=== PATIENT | male | born 1980 | race Caucasian/White ===

== ENCOUNTER 2019-08-09 02:23 | Emergency (ER) | payer SELFPAY ==
[2019-08-09] VITALS (7 sets, daily range): BP systolic 113–123; BP diastolic 69–96; PULSE 68–107; RESP 14–20; TEMP 36.4–36.6; O2SAT 97–99; BMI 19.0
--- NOTE | 2019-08-09 02:25 | ED_ITS ---
Entered by Vandana Romo, acting as scribe for Betzy Villegas MD HPI - Psych General: Chief Complaint: Psychiatric Symptoms Stated Complaint: mhe Time Seen by Provider: 08/09/19 02:29 History of Present Illness: HPI Narrative: 39 yo m came to the er pov for a mental health evaluation. Onset was tonight. Pt states that he has done meth iv, and that he has been up for about 2 weeks and no sleep. Pt states that he is [place]. Patient states that he has been having hallucinations and feels like multiple people are out to get him. He states he is having thoughts of killing these people and is scared that he may harm someone. He does admit to methamphetamine abuse. 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) Duration: constant History of same: Yes Relieving factors: none Exacerbating factors: none Context: recent drug abuse (meth) Associated psychiatric symptoms: homicidal ideation and visual hallucinations Associated symptoms: Reports visual hallucinations and homicidal ideation Details of plan: unknown of plan Review of Systems General: Reports: other (negative unless marked) Const: Denies: fever, chills, body aches or change in appetite Eyes: Denies: blurry vision or eye discomfort ENMT: Denies: throat pain or dental pain Card: Denies: chest pain Resp: Denies: shortness of breath GI: Denies: abdominal pain, nausea, vomiting or diarrhea : Denies: painful urination Musc: Denies: neck pain or back pain Skin/Breast: Denies: rash Neuro: Denies: headache Psych: Reports: visual hallucinations and homicidal ideation [place]/Lymph: Denies: easy bruising All/Imm: Denies: hives PFSH ED PFSH: Social History Smoking and tobacco status: current every day smoker Physical Exam Const: COMMON NORMALS: no apparent distress, oriented x3 and healthy appearing HENMT: COMMON NORMALS: normocephalic and head/scalp atraumatic HEAD & SCALP: normocephalic and atraumatic Eye: COMMON NORMALS: PERRL and EOMs intact bilaterally PUPIL: Yes PERRL Neck/C-Spine: COMMON NORMALS: full ROM and supple Chest: COMMONS NORMALS: inspection of chest normal and palpation of chest normal Resp: COMMON NORMALS: normal respiratory effort, no retractions, no use of accessory muscles and clear to auscultation bilaterally AUSCULTATION: clear to auscultation bilaterally Cardio: COMMON NORMALS: regular rate, regular rhythm and no murmurs RATE: regular rate RHYTHM: regular rhythm GI: COMMON NORMALS: normal to inspection, nondistended, normoactive bowel sounds, soft to palpation, non-tender and no masses PALPATION: Yes soft Extremity: COMMON NORMALS: normal to inspection and full ROM Neuro: COMMON NORMALS: oriented x3, moves all extremities and no focal motor deficits Psych: COMMON NORMALS: mental status grossly normal, thought process normal and cooperative THOUGHT PROCESS: normal thought process Skin: COMMON NORMALS: no rashes or lesions noted and no wounds GENERAL SKIN EXAM: no rashes or lesions noted MDM - Psych MDM Narrative: Medical decision making narrative: Patient presents here with methamphetamine abuse along with homicidal ideations and hallucinations. Patient is voluntarily wanting to go to psychiatric facility. Informed him he is unable to stay here as he has a family member admitted here. We will transfer him to another facility due to having family admitted to our psychiatric unit. Patient is medically cleared. Lab Data: Labs: Lab Results 08/09/19 08/09/19 08/09/19 Range/Units 02:33 02:33 03:15 WBC 9.7 (4.0-10.0) 10^3/ uL RBC 4.74 (4.1-5.3) 10^6/u L Hgb 14.0 (11.7-16.6) g/dL Hct 41.8 L (42.0-52.0) % MCV 88.2 (80-94) fL MCH 29.5 (28.0-34.0) pg MCHC 33.5 (30.0-36.0) g/dL RDW 12.7 (12.1-15.1) % Plt Count 298 (130-400) 10^3/c mm MPV 10.6 H (7.4-10.4) fL Neut % (Auto) 64.6 % Lymph % (Auto) 28.0 % [place] % (Auto) 5.7 % Eos % (Auto) 1.4 % Baso % (Auto) 0.1 % Neut # (Auto) 6.3 (1.8-7.7) 10^3/u L Lymph # (Auto) 2.7 (0.8-4.8) 10^3/u L [place] # (Auto) 0.6 (0.2-0.9) 10^3/u L Eos # (Auto) 0.1 (0.0-0.8) 10^3/u L Baso # (Auto) 0.0 (0.0-0.1) 10^3/u L Nucleated RBC % (a uto) 0 % Nucleated RBCs # 0.0 /100WBC Sodium 142 (136-145) mmol/L Potassium 4.2 (3.5-5.1) mmol/L Chloride 101 (98-107) mmol/L Carbon Dioxide 31 H (22-29) mmol/L Anion Gap 14.2 (5-19) BUN 16 (6-20) mg/dL Creatinine 1.0 (0.7-1.2) mg/dL GFR Calculation 82.3 L (90-130) mL/min Glucose 115 (65-115) mg/dL Calcium 10.1 (8.5-10.5) mg/dL Total Bilirubin 0.2 (0.15-1.2) mg/dL AST 14 (0-40) U/L ALT 10 (0-41) U/L Alkaline Phosphata se 115 (40-130) IU/L Total Protein 7.3 (6.6-8.7) g/dL Albumin 4.0 (3.5-5.2) g/dL Globulin 3.3 (1.3-4.6) g/dL Salicylates < 0.3 L (3-10) mg/dL Urine Opiates Scre en Negative (Negative) ng/mL Acetaminophen < 5.0 L (10-30) ug/mL Ur Barbiturates Sc reen Negative (Negative) ng/mL Ur Phencyclidine S crn Negative (Negative) ng/mL Ur Amphetamines Sc reen Positive H (Negative) ng/mL U Benzodiazepines Scrn Negative (Negative) ng/mL Urine Cocaine Scre en Negative (Negative) ng/mL U Marijuana (THC) Screen Negative (Negative) ng/mL Ethyl Alcohol < 10 (0-10) mg/dL EKG Data^: EKG 1: Attestation: I personally reviewed and interpreted this EKG as follows: EKG interpretation date: 03/06/20 EKG interpretation time: 04:43 Interpretation: Normal sinus rhythm heart rate [address] or T wave abnormalities QRS 109 QTc 447 Discharge Plan Discharge Patient Disposition: Xfer Other Clinical Impression: Drug-induced psychotic disorder, History of homicidal ideation Condition: Stable Coding Level of Care Code ED Headliner Installer for Chg Fwd Exam Comprehensive The documentation recorded by the Demetrius wells Stephanie Lyn, accurately reflects the service I personally performed and the decisions made by me, Betzy Villegas MD Aug 09, 2019 02:23
[2019-08-09 03:04] LABS: Basophils % 0.1 %; Eosinophils # 0.1 10^3/uL (0.0-0.8); Eosinophils % 1.4 %; Hematocrit 41.8 % (42.0-52.0); Lymphocytes # 2.7 10^3/uL (0.8-4.8); Mean Corpuscular HGB Conc 33.5 g/dL (30.0-36.0); Mean Corpuscular Hemoglobin 29.5 pg (28.0-34.0); Mean Corpuscular Volume 88.2 fL (80-94); Mean Platelet Volume 10.6 fL (7.4-10.4); Monocytes # 0.6 10^3/uL (0.2-0.9); Monocytes % 5.7 %; Neutrophils # 6.3 10^3/uL (1.8-7.7); Neutrophils % 64.6 %; Nucleated Red Blood Cells % 0 %; Platelet Count 298 10^3/cmm (130-400); Red Blood Count 4.74 10^6/uL (4.1-5.3); Red Cell Distribution Width 12.7 % (12.1-15.1); White Blood Count 9.7 10^3/uL (4.0-10.0)
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
[2019-08-09 03:18] LABS: Alanine Aminotransferase 10 U/L (0-41); Alkaline Phosphatase 115 IU/L (40-130); Anion Gap 14.2 (5-19); Aspartate Amino Transferase 14 U/L (0-40); Blood Urea Nitrogen 16 mg/dL (6-20); Calcium 10.1 mg/dL (8.5-10.5); Carbon Dioxide 31 mmol/L (22-29); Chloride 101 mmol/L (98-107); Globulin 3.3 g/dL (1.3-4.6); Glomerular Filtration Rate 82.3 mL/min (90-130); Glucose 115 mg/dL (65-115); Potassium 4.2 mmol/L (3.5-5.1); Sodium 142 mmol/L (136-145); Total Bilirubin 0.2 mg/dL (0.15-1.2); Total Protein 7.3 g/dL (6.6-8.7)
[2019-08-09 03:23] LABS: Acetaminophen < 5.0 ug/mL (10-30); Alcohol Level < 10 mg/dL (0-10); Salicylate < 0.3 mg/dL (3-10)
[2019-08-09] MEDS: LORazepam 2 mg/mL INJ 1 mL IM (03:25)
--- NOTE | 2019-08-09 03:46 | PC.NURSE ---
Called [facility] - [phone] - Stated that they have room and to send over paperwork.
--- NOTE | 2019-08-09 03:55 | PC.NURSE ---
Left message with Benedict Benoit
--- NOTE | 2019-08-09 04:08 | PC.NURSE ---
[facility] - Only up to and up
[2019-08-09 04:23] LABS: Amphetamines Screen Urine Positive (Negative); Barbiturates Screen Urine Negative (Negative); Benzodiazepines Screen Urine Negative (Negative); Cocaine Screen Urine Negative (Negative); Opiate Screen Urine Negative (Negative); PCP Screen Urine Negative (Negative); THC Screen Urine Negative (Negative)
--- NOTE | 2019-08-09 04:35 | PC.NURSE ---
[facility] - Only 1 female bed
--- NOTE | 2019-08-09 04:42 | PC.NURSE ---
EKG at 0439 done and shown to ER doctor
--- NOTE | 2019-08-09 05:09 | ECG_ITS ---
Measurements Intervals [place] Rate: 88 P: 73 MD: 133 QRS: 48 QRSD: 109 T: 72 QT: 401 QTc: 487 SINUS RHYTHM POSSIBLE RIGHT VENTRICULAR CONDUCTION DELAY [RSR (QR) IN V1/V2] Compared to ECG 09/23/2017 12:51:09 Sinus tachycardia no longer present T-wave abnormality no longer present Electronically Signed On 08-09-2019 15:25:58 FIELD MERCHANDISER by Dolores Covington M.D. [email or web address]
--- NOTE | 2019-08-09 05:33 | PC.NURSE ---
Pt info faxed to [facility] - [phone]
--- NOTE | 2019-08-09 06:41 | PC.NURSE ---
Paperwork faxed to [facility] - [phone]
--- NOTE | 2019-08-09 06:42 | PC.NURSE ---
[facility] - [phone] intake - Chart faxed to [phone] shaggy Garrison
--- NOTE | 2019-08-09 07:00 | PC.NURSE ---
Report received from off-going RN at this time. Patient resting in bed with sitter present. Information has been faxed to multiple facilities for placement, continuing to await a response from one of them. Will continue to monitor.
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
--- NOTE | 2019-08-09 08:13 | PC.NURSE ---
Patient is resting in bed with both eyes closed at this time. One on one sitter remains present with patient at this time. Will continue to monitor.
--- NOTE | 2019-08-09 08:53 | PC.NURSE ---
Contacted [facility] to check status on bed assignment/review. THey state they did not receive our fax. Information refaxed to facility at [phone].
--- NOTE | 2019-08-09 08:54 | PC.NURSE ---
Contacted [facility] regarding bed availability. Spoke with Pieter he states that they do not currently have beds available but they do anticipate discharges later in the afternoon if we would like to call back then.
--- NOTE | 2019-08-09 08:56 | PC.NURSE ---
Spoke with Tonya at [facility]. They do not currently have beds available but they do anticipate discharges this afternoon if we would like to call back.
--- NOTE | 2019-08-09 08:59 | PC.NURSE ---
Contacted [facility] for bed availability Spoke with Vee, she states, they do have male beds available; call transferred to physician for additional information on patient for possible placement.
--- NOTE | 2019-08-09 09:06 | PC.NURSE ---
Contacted [facility] and spoke with Bettie. They are currently full, may have some discharges and said that we can go ahead and fax information to them for review and they will call us if they have any male discharges. Information faxed to [phone].
--- NOTE | 2019-08-09 09:09 | PC.NURSE ---
COntacted [facility] for bed availability. Spoke with Terry, they do not currently have bed availability for this patient.
--- NOTE | 2019-08-09 09:10 | PC.NURSE ---
Contacted [facility] for bed availability. Spoke with Angella she states they have a bed available at their [place] location in [place], [place]. I spoke with patient and he said ok to going to this location if needed. Reviewed clincal information with Angella at this time.
--- NOTE | 2019-08-09 09:33 | PC.NURSE ---
[facility] [phone]
--- NOTE | 2019-08-09 09:44 | PC.NURSE ---
Patient drowsy at this time but does wake to voice. Patient denies any homicidal or suicidal ideation at this time. States he no longer feels this way. Physician is aware. One on one sitter remains present. Patient remains calm and cooperative with care. Will continue to monitor.
--- NOTE | 2019-08-09 11:06 | PC.NURSE ---
Received call back from [facility]. Both facilities have denied patient. Will continue to wait for last facility to call back.
--- NOTE | 2019-08-09 13:16 | PC.NURSE ---
One on one sitter remains present with patient.
--- NOTE | 2019-08-09 14:29 | ED_ITS ---
HPI - Psych General: Chief Complaint: Psychiatric Symptoms Stated Complaint: mhe Time Seen by Provider: 08/09/19 02:29 PFS ED PFSH: Social History Smoking and tobacco status: current every day smoker MDM - Psych MDM Narrative: Medical decision making narrative: 1200PM: I picked this pt up from Dr Shin. Dr Grimm psychiatry has seen the pt and states he is ok to be discharged per his instructions, Lab Data: Attestation: I reviewed the patient's lab results. Labs: Lab Results 08/09/19 08/09/19 08/09/19 Range/Units 02:33 02:33 03:15 WBC 9.7 (4.0-10.0) 10^3/ uL RBC 4.74 (4.1-5.3) 10^6/u L Hgb 14.0 (11.7-16.6) g/dL Hct 41.8 L (42.0-52.0) % MCV 88.2 (80-94) fL MCH 29.5 (28.0-34.0) pg MCHC 33.5 (30.0-36.0) g/dL RDW 12.7 (12.1-15.1) % Plt Count 298 (130-400) 10^3/c mm MPV 10.6 H (7.4-10.4) fL Neut % (Auto) 64.6 % Lymph % (Auto) 28.0 % [place] % (Auto) 5.7 % Eos % (Auto) 1.4 % Baso % (Auto) 0.1 % Neut # (Auto) 6.3 (1.8-7.7) 10^3/u L Lymph # (Auto) 2.7 (0.8-4.8) 10^3/u L [place] # (Auto) 0.6 (0.2-0.9) 10^3/u L Eos # (Auto) 0.1 (0.0-0.8) 10^3/u L Baso # (Auto) 0.0 (0.0-0.1) 10^3/u L Nucleated RBC % (a uto) 0 % Nucleated RBCs # 0.0 /100WBC Sodium 142 (136-145) mmol/L Potassium 4.2 (3.5-5.1) mmol/L Chloride 101 (98-107) mmol/L Carbon Dioxide 31 H (22-29) mmol/L Anion Gap 14.2 (5-19) BUN 16 (6-20) mg/dL Creatinine 1.0 (0.7-1.2) mg/dL GFR Calculation 82.3 L (90-130) mL/min Glucose 115 (65-115) mg/dL Calcium 10.1 (8.5-10.5) mg/dL Total Bilirubin 0.2 (0.15-1.2) mg/dL AST 14 (0-40) U/L ALT 10 (0-41) U/L Alkaline Phosphata se 115 (40-130) IU/L Total Protein 7.3 (6.6-8.7) g/dL Albumin 4.0 (3.5-5.2) g/dL Globulin 3.3 (1.3-4.6) g/dL Salicylates < 0.3 L (3-10) mg/dL Urine Opiates Scre en Negative (Negative) ng/mL Acetaminophen < 5.0 L (10-30) ug/mL Ur Barbiturates Sc reen Negative (Negative) ng/mL Ur Phencyclidine S crn Negative (Negative) ng/mL Ur Amphetamines Sc reen Positive H (Negative) ng/mL U Benzodiazepines Scrn Negative (Negative) ng/mL Urine Cocaine Scre en Negative (Negative) ng/mL U Marijuana (THC) Screen Negative (Negative) ng/mL Ethyl Alcohol < 10 (0-10) mg/dL Discharge Plan Discharge Patient Disposition: Home, Self-Care Clinical Impression: Drug-induced psychotic disorder, History of homicidal ideation Condition: Stable Prescriptions: No Action No Known Home Medications RF: 0 Referrals: Jessica Roberts RN [Emergency Nurse] - 1-3 days Discharge Diet: Usual diet Discharge Activity: Resume usual activity Patient Instructions: Methamphetamine Abuse (ED) Activity Restrictions/Additional Instructions: Case management will get ahold of you to get you set up with [facility]. You need to stop using meth. Further discharge instructions as given you by Dr Grimm. Return if any worse , any problems, any change. Discharge Date/Time: 08/09/19 14:44 Sign Out Sign Out Data: Patient Sign Out occurred on 08/09/19 at 12:13. Patient's care was discussed, and care was transferred from Juan Shin DO to Janene Arriaga DO. Sign Out Comment: Awaiting consultation for clearance from Dr. Grimm Last updated by Juan Shin DO at 08/09/19 12:06 Coding Level of Care Code ED Malt Liquors Sales Representative for g Stephanie
--- NOTE | 2019-08-12 09:51 | DCPLANNER ---
manager clinical pharmacy had message to schedule a follow up appointment for patient with [facility]. manager clinical pharmacy called [facility] to see if patient was a patient at [facility] or not. manager clinical pharmacy spoke with Denise and was told that patient is not a current patient at this time. manager clinical pharmacy called patient to speak with patient about follow up appointment, due to patient having an address on face sheet from [place]. manager clinical pharmacy called patient, unable to speak with patient at this time, due to a recording that states the call can not be completed at this time. manager clinical pharmacy unable to speak with patient at this time.
== END 2019-08-09 14:44 | disposition home or self-care (01) ==
PROVIDERS: Emergency Medicine; Emergency Provider Emergency Medicine
DX: F15.959 Other stimulant use, unspecified with stimulant-induced psychotic disorder, unspecified (principal); R45.850 Homicidal ideations; F17.210 Nicotine dependence, cigarettes, uncomplicated
CPT/HCPCS: 12345; 80053; 80307; 85025; 93005; 96372; 99284; A9270; J2060